=== PATIENT | male | born 1950 | race Caucasian/White ===

== ENCOUNTER 2016-09-11 07:18 | Day surgery (SDC) | payer OTHER ==
[~2016-09-11 07:18] MED LIST: ACETAMINOPHEN650 M4 PO; ALLERGY RELIEF10 M9 PO; AMBIEN5 M1 PO; ASPIR 8181 M1 PO; ASPIRIN325 M3 PO; ATENOLOL25 MG; ATIVAN1 M2 PO; AUGMENTIN 875-1 EAC2 PO; CATHFLO ACTIVASE2 MG IV; COLACE100 M1 PO; COZAAR100 M1 PO; COZAAR100 MG; COZAAR50 M1 PO; COZAAR50 MG; CPAP; CULTURELLE1 EAC1 PO; DIAZEPAM2 M2 PO; GABAPENTIN300 M1 PO; GABAPENTIN300 MG; GABAPENTIN400 M3 PO; GABAPENTIN600 MG; GLIPIZIDE XL10 MG; GLUCOSAMINE CH1 EA10 PO; GLUCOSAMINE1000 M1 PO; HEARTBURN RELI150 M1 PO; HUMALOG100 U/ML; HUMULIN R500 UNIT/1 SC; HUMULIN R500 UNIT/1 SQ; HYDROCHLOROTHIA25 MG; HYDROCHLOROTHIA50 M1 PO; HYDROCODON-ACE1 EA16 PO; INVANZ1 GM IV; KLOR-CON20 MEQ PO; LANTUS100 UNITS/ SC; LASIX40 M1 PO; LIDOCAINE PATCH; LIDOCAINE35.44 G1 TP; MAXZIDE 75/50 T1 TAB; METFORMIN HCL850 M1 PO; METFORMIN HCL850 MG; MIRALAX17 G2 PO; MOTRIN IB200 M1 PO; NEURONTIN300 M1 PO; NOVOLOG100 UNIT/2; NOVOLOG100 UNIT/2 SQ; NUCYNTA50 M1 PO; OMEPRAZOLE20 M3 PO; OMEPRAZOLE20 MG; PRILOSEC20 M1 PO; PRILOSEC20 MG PO; SALSALATE750 MG; SILVADENE20 G1 TP; SODIUM CHLORIDE10 M2 IV; SULFAMYLON SOL250 M1 EXT; TENORMIN25 M1 PO; TENORMIN25 MG; TENORMIN50 M1 PO; TRESIBA FL200 UNIT/1 SC; TRIAMTERENE-HC1 EAC2 PO; TRIAMTERENE-HCT1 CA; TRULICITY0.75 MG/0. SQ; VITAMIN D-32000 UNI4 PO; ZOFRAN ODT4 MG/UDTAB PO; [UNRECOGNIZED DRUG - OTHER] TP; [UNRECOGNIZED DRUG - REMARK] SC
[2016-11-14] MEDS ORDERED: TOPAMAX25 M2 PO (12:28)
[2016-11-14] MEDS ORDERED: BACTRIM DS TAB1 EAC2 PO (12:55)
[2016-11-14] MEDS ORDERED: VICTOZA 2-0.6 MG/0.1 SC (12:58)
[2016-11-19] MEDS ORDERED: NUCYNTA50 M1 PO (11:03)
[2016-11-19] MEDS ORDERED: ASPIRIN325 M3 PO (11:05)
== END 2016-09-11 11:25 ==
LOC: SRG 07:18 → SHSB 07:19 → ORE 09:02 → PACU 09:38 → SHSB 10:00
PROC: 097G4ZZ Dilation of Left Eustachian Tube, Percutaneous Endoscopic Approach (ICD-10-PCS; principal; 2016-09-11)
PROC: 099600Z Drainage of Left Middle Ear with Drainage Device, Open Approach (ICD-10-PCS; 2016-09-11)
DX: H69.82 Other specified disorders of Eustachian tube, left ear (principal); I13.0 Hypertensive heart and chronic kidney disease with heart failure and stage 1 through stage 4 chronic kidney disease, or unspecified chronic kidney disease; E11.22 Type 2 diabetes mellitus with diabetic chronic kidney disease; N18.9 Chronic kidney disease, unspecified; I50.30 Unspecified diastolic (congestive) heart failure; E11.40 Type 2 diabetes mellitus with diabetic neuropathy, unspecified; E66.01 Morbid (severe) obesity due to excess calories; G43.909 Migraine, unspecified, not intractable, without status migrainosus; M48.02 Spinal stenosis, cervical region; G47.33 Obstructive sleep apnea (adult) (pediatric); K21.9 Gastro-esophageal reflux disease without esophagitis; E78.5 Hyperlipidemia, unspecified; Z79.2 Long term (current) use of antibiotics; Z79.4 Long term (current) use of insulin; Z79.82 Long term (current) use of aspirin; Z79.899 Other long term (current) drug therapy; Z88.5 Allergy status to narcotic agent; Z88.8 Allergy status to other drugs, medicaments and biological substances; Z90.89 Acquired absence of other organs; Z89.411 Acquired absence of right great toe; Z98.890 Other specified postprocedural states; Z99.89 Dependence on other enabling machines and devices
CPT/HCPCS: C1726

== ENCOUNTER 2016-09-13 08:13 | Emergency (ER) | payer OTHER ==
[2016-09-13] MEDS ORDERED: CIPRO HC OTIC S10 M1 LEFT EAR (08:40)
[2016-09-13] MEDS ORDERED: FLONASE ALLERG9.9 ML (08:41)
[2016-11-14] MEDS ORDERED: TOPAMAX25 M2 PO (12:28)
[2016-11-14] MEDS ORDERED: BACTRIM DS TAB1 EAC2 PO (12:55)
[2016-11-14] MEDS ORDERED: VICTOZA 2-0.6 MG/0.1 SC (12:58)
[2016-11-19] MEDS ORDERED: NUCYNTA50 M1 PO (11:03)
[2016-11-19] MEDS ORDERED: ASPIRIN325 M3 PO (11:05)
== END 2016-09-13 09:30 ==
LOC: EDMED 08:13
DX: S40.012A Contusion of left shoulder, initial encounter (principal); W01.0XXA Fall on same level from slipping, tripping and stumbling without subsequent striking against object, initial encounter